=== PATIENT | female | born 1955 ===

== ENCOUNTER → 2023-11-01 11:55 | Outpatient (CLI) | payer OTHER ==
[~2023-11-01 11:55] MED LIST: CIPRO500 MG PO; KETO10TA2 PO; PEPCID20 MG PO; PYRIDIUM100 M1 PO; ULTRACET PO
== END | disposition home or self-care (01) ==
LOC: NUCLEAR 11:55
PROVIDERS: ATTEND Internal Medicine
DX: I87.2 Venous insufficiency (chronic) (peripheral) (principal); I82.409 Acute embolism and thrombosis of unspecified deep veins of unspecified lower extremity